=== PATIENT | female | born 1970 | race Caucasian/White ===

== ENCOUNTER → 2017-09-01 | Outpatient (CLI) | payer MEDICAID ==
[~2017-09-01] MED LIST: CLON.5 PO; FISH1200 PO; FLUO10TA PO; GABA600T PO; HYDR-3516 PO; LIPI40TA PO; MAXA5TAB2 PO; OMEG12007 PO; OXYB5TAB8 PO; THERH PO; VITA200013 PO
--- NOTE | 2017-09-01 12:33 | MH ---
cc: Rajat Min MD DATE OF ADMISSION: 09/01/2017 REASON FOR EVALUATION: She is scheduled for admission on 09/07/2017 for transobturator sling for stress incontinence. HISTORY OF PRESENT ILLNESS: The patient is a 46-year-old white female 4, para 4 who has had issues with urinary incontinence and bladder dysfunction since she had an open supracervical hysterectomy in 07/2015. She has had urodynamic studies that shows no detrusor instability but does have leaking at 80% capacity. The patient has opted for a transobturator sling. 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 She has residual weakness and numbness in the right leg. Otherwise her medical history is notable only for hypercholesterolemia and hypertension. MEDICATIONS: Gabapentin 600 mg at bedtime, Maxalt 5 mg daily, Prozac 10 mg daily, Lipitor 40 mg daily, oxybutynin 5 mg p.r.n., Klonopin 0.5 mg daily p.r.n. ALLERGIES: scopolamine causes blurred vision which is more of a side effect, not a true allergy. 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 No alcohol, tobacco or caffeine. PAST SURGICAL HISTORY: As above, cholecystectomy and open supracervical hysterectomy. FAMILY HISTORY: Noncontributory. OBSTETRIC HISTORY: Four vaginal deliveries. GYNECOLOGIC HISTORY: No STDs or abnormal Pap smears. REVIEW OF SYSTEMS: As above. Otherwise negative for chest pain, orthopnea or PND. No nausea, vomiting, fever or chills. No vaginal bleeding or discharge. PHYSICAL EXAMINATION: VITAL SIGNS: She is afebrile with vital signs stable. Blood pressure is 120/70. Height is 5 feet 8, weight 225, BMI is 34. GENERAL: The patient is alert and oriented, no acute distress, no sign of cognitive dysfunction or depression. HEENT: Within normal limits. NECK: Supple, no JVD. CHEST: Clear. HEART: Regular rate and rhythm. ABDOMEN: Soft, nontender, no hepatosplenomegaly. PELVIC EXAM: Will be detailed under anesthesia. In the office, we note Aa is -3, Ap is -3, point C is -8. Further exam under anesthesia. EXTREMITIES: Warm. SKIN: Without rashes. NEUROLOGIC: Notable for weakness on the right lower extremity, otherwise negative. No DVT signs. ASSESSMENT: Patient with stress urinary incontinence. We discussed options for management and treatment. She is aware of the risks, benefits and alternatives of the planned procedure including damage to surrounding organs, bleeding, infection, possibility that the bladder may still have leaking; also possibility of retention, pain, dyspareunia, mesh erosion are discussed. At this point, we anticipate outpatient procedure. We will use DVT prophylaxis with sequential compression device and antibiotic prophylaxis with Ancef 2 grams. MD ANTONIETA Mock/VINCENT , 11:43 AM , 12:31 PM
[2017-09-01 12:58] LABS: AUTOMATED NEUTROPHIL # 5.9 TH/MM3 (1.8-7.7); BASOPHIL # 0.1 TH/MM3 (0-0.2); BASOPHIL % 0.7 % (0.0-2.0); EOSINOPHIL # 0.1 TH/MM3 (0-0.4); EOSINOPHIL % 1.1 % (0.0-4.0); HEMATOCRIT 37.2 % (35.0-46.0); HEMOGLOBIN 12.9 GM/DL (11.6-15.3); LYMPH % 25.8 % (9.0-44.0); LYMPHOCYTE # 2.2 TH/MM3 (1.0-4.8); MEAN CELL VOLUME 90.4 FL (80.0-100.0); MEAN CORPUSCULAR HEMOGLOBIN 31.3 PG (27.0-34.0); MEAN CORPUSCULAR HGB CONC 34.7 % (32.0-36.0); MEAN PLATELET VOLUME 6.7 FL (7.0-11.0); MONO % 4.9 % (0.0-8.0); MONOCYTE # 0.4 TH/MM3 (0-0.9); NEUT % 67.5 % (16.0-70.0); PLATELET COUNT 392 TH/MM3 (150-450); RED BLOOD COUNT 4.11 MIL/MM3 (4.00-5.30); RED CELL DISTRIBUTION WIDTH 12.2 % (11.6-17.2); WHITE BLOOD COUNT 8.7 TH/MM3 (4.0-11.0)
[2017-09-01 13:01] LABS: BACTERIA, URINE RARE /hpf; BILIRUBIN, URINE NEG (NEG); BLOOD, URINE NEG (NEG); GLUCOSE,URINE NEG (NEG); KETONE, URINE NEG (NEG); NITRITE,URINE NEG (NEG); PH, URINE 6.5 (5.0-8.5); SQUAMOUS EPITHELIAL CELL URINE 1 /hpf (0-5); URINE LEUKOCYTE ESTERASE NEG (NEG)
[2017-09-01 13:02] LABS: URINE COLOR STRAW (YELLW/STRAW)
[2017-09-01 13:19] LABS: ALBUMIN 3.7 GM/DL (3.4-5.0); BICARBONATE 29.5 MEQ/L (21.0-32.0); BLOOD UREA NITROGEN 6 MG/DL (7-18); CALCIUM 8.7 MG/DL (8.5-10.1); CHLORIDE 104 MEQ/L (98-107); CREATININE 0.56 MG/DL (0.50-1.00); GLOMERULAR FILTRATION RATE 117 ML/MIN (>89); GLUCOSE,FASTING 80 MG/DL (74-99); SODIUM (NA) 140 MEQ/L (136-145)
[2017-09-01 13:20] LABS: ALT (GPT) 9 U/L (10-53); AST (GOT) 9 U/L (15-37)
[2017-09-01 13:25] LABS: ALKALINE PHOSPHATASE 83 U/L (45-117); TOTAL BILIRUBIN ADULT 0.4 MG/DL (0.2-1.0); TOTAL PROTEIN 7.3 GM/DL (6.4-8.2)
== END ==
LOC: CPRE 12:23
PROVIDERS: ATTEND Obstetrics & Gynecology Gynecology
DX: Z01.812 Encounter for preprocedural laboratory examination (principal); R32 Unspecified urinary incontinence
CPT/HCPCS: 36415; 80053; 81001; 84703; 85025

== ENCOUNTER → 2017-09-07 | Day surgery (SDC) | payer MEDICAID ==
[~2017-09-07] VITALS: Ht 172.7 cm; Wt 103.1 kg
[~2017-09-07] MED LIST changes: +ACETAMINOPHEN 1000 MG/100 ML 100 ML IV ONE; +APREPITANT 40 MG CAP ONE; +CHLORHEXIDINE GLUCONATE 2 % 1 PACK (2 CLOTHS) TOPICAL PRN; -CLON.5 PO; +DEXAMETHASONE SOD PHOS 4 MG/ML VIAL IV ONE; +DO NOT ADM ANY ANTICOAGULANT DRUGS PRN; +ESTROGENS CONJUGATED VAG CREA 15 APPL/30 GM TUBE ONE; -FLUO10TA PO; +FLUORESCEIN SOD 10% SOLN 500 MG/5 ML AMP ONE; +KETOROLAC TROMETHAMINE 30 MG/ML (IVP) VIAL IV PUSH ONE; +KETOROLAC TROMETHAMINE 30 MG/ML (IVP) VIAL IV PUSH PRN; +LACTATED RINGER'S 1000 ML IV PRN; +LIDOCAINE 1%/EPINEPHrine 1:100,000 SOLN 30 ML VIAL ONE; +LIDOCAINE HCL 1% PF 5 ML SYRINGE OTHER ONE; +METHYLENE BLUE 10 MG/ML VIAL ONE; +METOPROLOL TARTRATE 25 MG TAB PO PRN; +MIDAZOLAM HCL 2 MG/2 ML VIAL ONE; -OMEG12007 PO; +ONDANSETRON HCL 4 MG/2 ML VIAL IV ONE; +ONDANSETRON HCL 4 MG/2 ML VIAL IV PUSH PRN; -OXYB5TAB8 PO; +POVIDONE IODINE 5% (ANTISEPSIS KIT) 4 APPLICATIONS EACH NARE PRN; +PROPOFOL 200 MG/20 ML AMP IV ONE; +SODIUM CHLORID 0.9% 500 ML IV PRN; +TOPI200 PO; +traMADol HCL 50 MG TAB ONE
[2017-09-07] MEDS: ceFAZolin 2 GM PREMIX 50 ML IV SCH ×2 (07:29→08:42)
[2017-09-07 10:45] VITALS: BP 108/75; PULSE 93; RESP 16; TEMP 97.8; O2SAT 96
--- NOTE | 2017-09-07 12:34 | MP ---
cc: Rajat Min MD DATE OF OPERATION: 09/07/2017 PREOPERATIVE DIAGNOSES: Stress urinary incontinence, code N39.3. POSTOPERATIVE DIAGNOSIS: Stress urinary incontinence, code N39.3 with anterior cystocele, code N81.11. PROCEDURE: Transobturator sling Devorah/Desara sling polypropylene, code 05351, anterior repair, code 51466. SURGEON: Rajat Min MD ANESTHESIA: General endotracheal. LABORER OPERATOR: [place] staff x 2. FLUIDS 1000 mL crystalloid. URINE OUTPUT: 200 mL. BLOOD LOSS: 20 mL. FINDINGS: External genitalia normal. POP-Q score: Aa is -1, Ap is -1. Point C is -6. Total vaginal length is 10. Genital hiatus is 6. Perineal body is 4. Following repair: Aa is -3 Cystoscopy shows normal trigone, good coaptation of urethra, ureteral orifices patent x 2. Dome and base of bladder normal. SPECIMENS: None. COMPLICATIONS: None. DISPOSITION: To recovery room stable. NEEDLE, INSTRUMENT AND SPONGE COUNTS: Correct. DRAINS: Lyman catheter. ANTIBIOTIC PROPHYLAXIS: Ancef 2 gm. DVT PROPHYLAXIS: Sequential compression device. TIME-OUT AND IDENTIFICATION PROCEDURE: Per protocol. SUMMARY OF INDICATIONS FOR THE PROCEDURE: The patient with symptomatic stress urinary incontinence. She also has some degree of urge incontinence. She has had a urodynamic testing that showed leak at 50% capacity. No detrusor instability. She was apprised of the possibility of exacerbation of her urge issues, but she wanted to proceed with the sling procedure to deal with her stress incontinence. Patient's medical history is notable for femoral nerve injury following prior hysterectomy. PROCEDURE NOTE: The patient was taken to the operating room theater, identified, prepped and draped in a fashion appropriate for the planned procedure. She was in the dorsal lithotomy position with careful attention paid to placement of legs in stirrups to avoid undue stress to sensitive neurovascular structures. The above findings were noted. Neurovascular integrity documented. Lyman catheter was placed. Methylene blue was instilled into the bladder. The obturator foramen were identified and infiltrated with epinephrine/lidocaine solution. The urethral length was identified by palpating the Lyman bulb. The vaginal mucosa was infiltrated with epinephrine/lidocaine solution and a midline incision was made with sharp scissors. The urethra was mobilized. There was no spill of methylene blue with dissection. C-hooks were placed from the lateral to medial position. A polypropylene sling was put into position in the mid urethra using a scalpel handle as a spacer. The anterior repair was performed in standard fashion with delayed absorbable suture. The vaginal mucosa was trimmed. The vaginal mucosa closed with 0 Vicryl interrupted sutures. Hemostatic matrix was used to obviate the need for packing. Cystoscopy was performed using a 17 Malian bridge and a 70 degree scope. The above findings were noted. The procedure was concluded. The patient was sent to the recovery room in stable condition. MD ANTONIETA Mock/HAYDEE/mitzi , 11:18 AM , 12:11 PM [facility]
== END | disposition home or self-care (01) ==
LOC: HSDC 06:14 → EDUNIT# 12:30
PROVIDERS: ATTEND Obstetrics & Gynecology Gynecology
DX: N39.3 Stress incontinence (female) (male) (principal); N81.11 Cystocele, midline
CPT/HCPCS: 00860; 57240; 57288; C1771; J0131; J0690; J1100; J1885; J2250; J2405; J3010; J7120; J8501

== ENCOUNTER → 2017-11-22 | Outpatient (CLI) | payer MEDICAID ==
[~2017-11-22] MED LIST changes: -ACETAMINOPHEN 1000 MG/100 ML 100 ML IV ONE; -APREPITANT 40 MG CAP ONE; -CHLORHEXIDINE GLUCONATE 2 % 1 PACK (2 CLOTHS) TOPICAL PRN; -DEXAMETHASONE SOD PHOS 4 MG/ML VIAL IV ONE; -DO NOT ADM ANY ANTICOAGULANT DRUGS PRN; -ESTROGENS CONJUGATED VAG CREA 15 APPL/30 GM TUBE ONE; -FLUORESCEIN SOD 10% SOLN 500 MG/5 ML AMP ONE; +GABA800T PO; -KETOROLAC TROMETHAMINE 30 MG/ML (IVP) VIAL IV PUSH ONE; -KETOROLAC TROMETHAMINE 30 MG/ML (IVP) VIAL IV PUSH PRN; -LACTATED RINGER'S 1000 ML IV PRN; -LIDOCAINE 1%/EPINEPHrine 1:100,000 SOLN 30 ML VIAL ONE; -LIDOCAINE HCL 1% PF 5 ML SYRINGE OTHER ONE; -METHYLENE BLUE 10 MG/ML VIAL ONE; -METOPROLOL TARTRATE 25 MG TAB PO PRN; -MIDAZOLAM HCL 2 MG/2 ML VIAL ONE; -ONDANSETRON HCL 4 MG/2 ML VIAL IV ONE; -ONDANSETRON HCL 4 MG/2 ML VIAL IV PUSH PRN; -POVIDONE IODINE 5% (ANTISEPSIS KIT) 4 APPLICATIONS EACH NARE PRN; -PROPOFOL 200 MG/20 ML AMP IV ONE; -SODIUM CHLORID 0.9% 500 ML IV PRN; +TOPI100T8 PO; -traMADol HCL 50 MG TAB ONE
[2017-11-22 11:56] LABS: AUTOMATED NEUTROPHIL # 7.8 TH/MM3 (1.8-7.7); BASOPHIL # 0.1 TH/MM3 (0-0.2); BASOPHIL % 0.9 % (0.0-2.0); EOSINOPHIL # 0.1 TH/MM3 (0-0.4); EOSINOPHIL % 0.9 % (0.0-4.0); HEMATOCRIT 40.8 % (35.0-46.0); HEMOGLOBIN 13.9 GM/DL (11.6-15.3); LYMPH % 17.6 % (9.0-44.0); LYMPHOCYTE # 1.8 TH/MM3 (1.0-4.8); MEAN CELL VOLUME 90.6 FL (80.0-100.0); MEAN CORPUSCULAR HEMOGLOBIN 30.9 PG (27.0-34.0); MEAN CORPUSCULAR HGB CONC 34.1 % (32.0-36.0); MONO % 6.1 % (0.0-8.0); MONOCYTE # 0.6 TH/MM3 (0-0.9); NEUT % 74.5 % (16.0-70.0); PLATELET COUNT 413 TH/MM3 (150-450); RED BLOOD COUNT 4.51 MIL/MM3 (4.00-5.30); RED CELL DISTRIBUTION WIDTH 12.5 % (11.6-17.2); WHITE BLOOD COUNT 10.5 TH/MM3 (4.0-11.0)
[2017-11-22 12:20] LABS: AST (GOT) 16 U/L (15-37); BICARBONATE 28.3 MEQ/L (21.0-32.0); BLOOD UREA NITROGEN 9 MG/DL (7-18); CALCIUM 9.2 MG/DL (8.5-10.1); CHLORIDE 103 MEQ/L (98-107); CREATININE 0.69 MG/DL (0.50-1.00); GLOMERULAR FILTRATION RATE 92 ML/MIN (>89); GLUCOSE,FASTING 99 MG/DL (74-99); SODIUM (NA) 140 MEQ/L (136-145)
[2017-11-22 12:30] LABS: ALKALINE PHOSPHATASE 107 U/L (45-117); ALT (GPT) 21 U/L (10-53); TOTAL BILIRUBIN ADULT 0.6 MG/DL (0.2-1.0)
[2017-11-22 14:53] LABS: BILIRUBIN, URINE NEG (NEG); BLOOD, URINE NEG (NEG); GLUCOSE,URINE NEG (NEG); KETONE, URINE NEG (NEG); NITRITE,URINE NEG (NEG); PH, URINE 6.5 (5.0-8.5); URINE COLOR LIGHT-YELLOW (YELLW/STRAW); URINE LEUKOCYTE ESTERASE TRACE (NEG)
== END ==
LOC: CPRE 10:25
PROVIDERS: ATTEND Obstetrics & Gynecology Gynecology
DX: Z01.812 Encounter for preprocedural laboratory examination (principal); T83.9XXD Unspecified complication of genitourinary prosthetic device, implant and graft, subsequent encounter
CPT/HCPCS: 36415; 80053; 81001; 85025

== ENCOUNTER → 2017-11-23 | Day surgery (SDC) | payer MEDICAID ==
--- NOTE | 2017-11-22 11:20 | MH ---
cc: Rajat Min MD DATE OF ADMISSION: 11/23/2017 SCHEDULED FOR ADMISSION ON : 11/23/2017. REASON FOR ADMISSION: For revision of suburethral sling. HISTORY OF PRESENT ILLNESS: The patient is a 46-year-old white female, 4, para 4, who has had issues with urinary incontinence and bladder dysfunction. She had a sling placed on 09/01/2017 and had done well, at her 8-week postop visit had a normal exam. After initiating intercourse, she noted some vaginal discharge and her partner complained of discomfort. She was evaluated and found to have an erosion of the sling and breakdown of the surgical site. She has now opted for revision of the sling and possible removal. PAST MEDICAL HISTORY: Notable for a history of femoral nerve injury following prior hysterectomy. Otherwise, negative for heart, lung, liver disease, hypertension, diabetes or stroke. PAST SURGICAL HISTORY: Supracervical hysterectomy, anterior and posterior repair. Sling placement. Cholecystectomy. MEDICATIONS: 1. Gabapentin 600 mg at bedtime 2. Maxalt 5 mg every day. 3. Prozac 10 mg every day. 4. Lipitor 40 mg every day. 5. Oxybutynin 5 mg p.r.n. 6. Klonopin 0.5 mg every day. 7. [place] 150 mg every day. 8. Topamax 50 mg every day. ALLERGIES: SCOPOLAMINE causes blurred vision. 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 No alcohol, tobacco, caffeine. FAMILY HISTORY: Noncontributory. OB HISTORY: Four vaginal deliveries. EARTH AUGER OPERATOR HISTORY: No STDs or abnormal Pap smears. REVIEW OF SYSTEMS: As above, otherwise negative for chest pain, orthopnea, PND. No nausea, vomiting or chills. No vaginal discharge or bleeding. PHYSICAL EXAMINATION: VITAL SIGNS: She is afebrile. Vital signs stable. Blood pressure is 130/70, height is 5 feet , 8 inches. Weight 225. BMI is 34. GENERAL: Alert and oriented, in no acute distress. No sign of cognitive dysfunction or depression. HEENT: Within normal limits. NECK: Supple. No JVD. CHEST: Clear. HEART: Regular rate and rhythm. ABDOMEN: Soft, nontender. No hepatosplenomegaly. PELVIC: Exam will be detailed under anesthesia, but in the office we note an erosion of the sling for approximate 3 cm. Further exam under anesthesia. EXTREMITIES: Normal. SKIN: Without rashes. NEUROLOGIC: Nonfocal. No DVT signs. ASSESSMENT: The patient with erosion of suburethral sling. She is aware of the risks, benefits and alternatives of the planned procedure including damage to surrounding organs, bleeding, infection, possibility that the wound could break down again and there could be retained sling if we remove the sling. She may well have a recurrence of stress incontinence and there is no guarantee that she would not have dyspareunia as well. PLAN: The patient has made an informed choice to proceed. We will use DVT prophylaxis with sequential compression device and antibiotic prophylaxis, 2 grams Ancef IV. MD ANTONIETA Mock/BUZZ , 10:51 AM , 11:19 AM
[~2017-11-23] VITALS: Ht 172.7 cm; Wt 102.6 kg
[~2017-11-23] MED LIST changes: +APREPITANT 40 MG CAP ONE; +CHLORHEXIDINE GLUCONATE 2 % 1 PACK (2 CLOTHS) TOPICAL PRN; +DEXAMETHASONE SOD PHOS 4 MG/ML VIAL IV ONE; +DO NOT ADM ANY ANTICOAGULANT DRUGS PRN; +FUROSEMIDE 100 MG/10 ML VIAL ONE; -GABA600T PO; +KETOROLAC TROMETHAMINE 30 MG/ML (IVP) VIAL IV PUSH ONE; +KETOROLAC TROMETHAMINE 60 MG/2 ML (IM) VIAL IM PRN; +LACTATED RINGER'S 1000 ML IV PRN; +LIDOCAINE HCL 1% PF 5 ML SYRINGE OTHER ONE; +METHYLENE BLUE 10 MG/ML VIAL ONE; +METOPROLOL TARTRATE 25 MG TAB PO PRN; +MIDAZOLAM HCL 2 MG/2 ML VIAL ONE; +ONDANSETRON HCL 4 MG/2 ML VIAL IV ONE; +ONDANSETRON ODT 4 MG TAB PO PRN; +POVIDONE IODINE 5% (ANTISEPSIS KIT) 4 APPLICATIONS EACH NARE PRN; +PROPOFOL 200 MG/20 ML AMP IV ONE; +SODIUM CHLORID 0.9% 500 ML IV PRN; +ceFAZolin 2 GM/DEX PREMIX 50 ML IV SCH; +traMADol HCL 50 MG TAB PO PRN
--- NOTE | 2017-11-23 11:53 | MP ---
cc: Rajat Min MD DATE OF OPERATION: 11/23/2017 PREOPERATIVE DIAGNOSIS: Erosion of midurethral sling, code T 83.718. POSTOPERATIVE DIAGNOSIS: Erosion of midurethral sling, code T 83.718. PROCEDURE PERFORMED: 1. Revision of sling, code 89325. 2. Anterior repair, code 56393. SURGEON: Dr. Min. ANESTHESIA: General endotracheal. ESTIMATED BLOOD LOSS: Less than 5 mL URINE OUTPUT: 300 mL FLUIDS: 1000 mL crystalloid. FINDINGS: External genitalia normal. Pop-Q score Aa is -2, Ap is -2. Point C is -8. Total vaginal length is 10. Genital hiatus is 8. Perineal body is 4. The anterior wall, there was an area of erosion approximately 2 cm that appears to be grossly infected. Cystoscopy shows normal trigone, good coaptation of ureteral orifice. The ureteral orifices patent x2. Dome and base of bladder normal. SPECIMENS: Sling for gross inspection only. COMPLICATIONS: None. DISPOSITION: Recovery room, stable. COUNTS: Needle, sponge count correct. DRAINS: None. ANTIBIOTIC PROPHYLAXIS: Ancef 2 grams. DVT PROPHYLAXIS: Sequential compression device. TIMEOUT: Timeout procedure, per protocol. INDICATION: The patient has issues with a midurethral sling that was placed approximately 2 months ago. She has had erosion and breakdown of the anterior vaginal wall. The plan was to revise the sling if possible, but if it was grossly infected to remove it and perform anterior repair and Lucila plication. DESCRIPTION OF PROCEDURE: The patient was taken to the operating theater, identified and prepped and draped in a fashion appropriate for procedure. She was in dorsal lithotomy position with careful attention paid to placement of the legs in stirrups to avoid undue stress to sensitive neurovascular structures. It should be noted the patient has a history of a right femoral nerve injury from surgery several years ago and careful attention was paid to placement of the right leg to avoid any recurrent injury. Pelvis was inspected with the above findings noted. It was felt that the mesh was infected and needed to be removed. We took the sling down past the vaginal mucosa, irrigated the area and then performed a Lucila plication and anterior repair in standard fashion with delayed absorbable suture. Cystoscopy was performed using a 17-Portuguese bridge and 70-degree scope with above findings noted. The patient tolerated the procedure well and was taken to the recovery room in stable condition. Rajat Min MD CJS/TL , 11:31 AM , 11:52 AM
[2017-11-23 13:45] VITALS: BP 111/82; PULSE 78; RESP 18; TEMP 97.5; O2SAT 96
== END | disposition home or self-care (01) ==
LOC: HSDC 08:08
PROVIDERS: ATTEND Obstetrics & Gynecology Gynecology
DX: T83.718A Erosion of other implanted mesh to organ or tissue, initial encounter (principal)
CPT/HCPCS: 00860; 00942; 57240; 57287; 88305; J0690; J1885; J2250; J3010; J8501; 88300; J1100; J1940; J2405